=== PATIENT | male | born 1960 | race African-American/Black ===

== ENCOUNTER 2018-02-08 21:45 | Emergency (ER) | payer OTHER ==
[~2018-02-08] VITALS: Ht 162.6 cm; Wt 63.5 kg
[2018-02-08] MEDS ORDERED: VENTOLIN HFA 1818 GM INH (21:59)
[2018-02-08] MEDS ORDERED: PROAIR HFA8.5 GM INH (22:48)
[2018-02-09 00:53] VITALS: BP 95/71
== END 2018-02-09 00:56 | disposition home or self-care (01) ==
LOC: ER 21:45
DX: F10.129 Alcohol abuse with intoxication, unspecified (principal); Z76.0 Encounter for issue of repeat prescription; R42 Dizziness and giddiness; J45.909 Unspecified asthma, uncomplicated